=== PATIENT | female | born 1980 | race Caucasian/White ===

== ENCOUNTER 2019-09-01 08:59 | Emergency (ER) | payer SELFPAY ==
[~2019-09-01] VITALS: Wt 133.2 kg
[2019-09-01] MEDS ORDERED: YAZ 28 3 MG-0.01 TAB PO (09:25)
[2019-09-01] MEDS ORDERED: ZOLOFT 100MG100 MG PO (09:26)
[2019-09-01] MEDS ORDERED: CELEBREX 1100 MG/CAP PO (09:26)
[2019-09-01] MEDS ORDERED: LISINOPRIL10 MG PO (09:26)
[2019-09-01] MEDS ORDERED: GLUCOPHAGE PO (09:27)
[2019-09-01] MEDS ORDERED: CYCLOBENZ5 MG PO (09:27)
[2019-09-01] MEDS ORDERED: DAILY VALUE1 EACH PO (09:28)
[2019-09-01] MEDS ORDERED: ZOFRAN4 M2 PO (09:28)
[2019-09-01 09:48] LABS: EOS # 0.2 (0.04-0.40); EOS % 2.2 % (1.0-5.0); HEMATOCRIT 37.6 % (37.0-47.0); HEMOGLOBIN 11.8 g/dL (12.5-16.0); LYMPH# 2.5 (1.50-4.00); MEAN CELL VOLUME 87 fl (78-100); MEAN CORPUSCULAR HEMOGLOBIN 27 pg (27-31); MEAN CORPUSCULAR HGB CONC 31 g/dL (33-37); MONO # 0.4 (0.20-0.80); NEU # 7.4 (1.40-6.50); PLATELET COUNT 339 K/mm3 (130-400); RED BLOOD COUNT 4.33 M/mm3 (4.10-5.30); RED CELL DISTRIBUTION WIDTH 15.1 % (11.5-14.5); WHITE BLOOD COUNT 10.6 K/mm3 (4.8-10.8)
[2019-09-01 09:58] LABS: ALBUMIN 3.3 g/dL (3.5-5.0)
[2019-09-01 09:59] LABS: CALCIUM 8.5 mg/dL (8.3-10.5)
[2019-09-01 10:00] LABS: TOTAL PROTEIN 6.7 g/dL (6.4-8.3)
[2019-09-01 10:02] LABS: TOTAL BILIRUBIN 0.2 mg/dL (0.2-1.2)
[2019-09-01 10:59] LABS: URINE APPEARANCE CLEAR; URINE BILIRUBIN NEGATIVE (NEGATIVE); URINE BLOOD NEGATIVE (NEGATIVE); URINE COLOR YELLOW; URINE GLUCOSE NEGATIVE (NEGATIVE); URINE KETONE NEGATIVE (NEGATIVE); URINE LEUKOCYTE ESTERASE NEGATIVE (NEGATIVE); URINE NITRATE NEGATIVE (NEGATIVE); URINE PROTEIN(semi-quant) NEGATIVE (NEGATIVE); URINE UROBILINOGEN NORMAL (NORMAL); URINE WBC 0-1 /hpf (0-3)
[2019-09-01 15:58] VITALS: BP 112/52
== END 2019-09-01 16:04 | disposition home or self-care (01) ==
LOC: ED 08:59
PROVIDERS: Nurse Practitioner Primary Care
DX: R10.84 Generalized abdominal pain (principal); I10 Essential (primary) hypertension; F32.9 Major depressive disorder, single episode, unspecified; E28.2 Polycystic ovarian syndrome
CPT/HCPCS: J1885; J2270; J2310; J2405; Q9967

== ENCOUNTER 2020-04-19 12:15 | Emergency (ER) | payer BC ==
[~2020-04-19 12:15] MED LIST: CELEBREX 1100 MG/CAP PO; CYCLOBENZ5 MG PO; DAILY VALUE1 EACH PO; GLUCOPHAGE PO; LISINOPRIL10 MG PO; YAZ 28 3 MG-0.01 TAB PO; ZOFRAN4 M2 PO; ZOLOFT 100MG100 MG PO
[2020-04-19] MEDS ORDERED: FLONASE ALLERG9.9 ML NS (12:28)
[2020-04-19] MEDS ORDERED: ZYRTEC10 M3 PO (12:28)
[2020-04-19 13:13] LABS: EOS # 0.2 (0.04-0.40); EOS % 2.8 % (1.0-5.0); HEMATOCRIT 36.6 % (37.0-47.0); HEMOGLOBIN 11.6 g/dL (12.5-16.0); MEAN CELL VOLUME 84 fl (78-100); MEAN CORPUSCULAR HEMOGLOBIN 27 pg (27-31); MEAN CORPUSCULAR HGB CONC 32 g/dL (33-37); MEAN PLATELET VOLUME 8.9 fl (7.4-10.4); MONO # 0.6 (0.20-0.80); NEU # 4.7 (1.40-6.50); PLATELET COUNT 384 K/mm3 (130-400); RED BLOOD COUNT 4.37 M/mm3 (4.10-5.30); RED CELL DISTRIBUTION WIDTH 15.3 % (11.5-14.5); WHITE BLOOD COUNT 7.5 K/mm3 (4.8-10.8)
[2020-04-19 13:23] LABS: ALBUMIN 3.6 g/dL (3.5-5.0)
[2020-04-19 13:24] LABS: POTASSIUM 3.5 mmol/L (3.5-5.1); SODIUM 139 mmol/L (136-145)
[2020-04-19 13:25] LABS: CALCIUM 8.8 mg/dL (8.3-10.5)
[2020-04-19 13:26] LABS: GLUCOSE 98 mg/dL (65-105); TOTAL PROTEIN 6.9 g/dL (6.4-8.3)
[2020-04-19 13:27] LABS: CARBON DIOXIDE 24 mmol/L (22-29)
[2020-04-19 13:28] LABS: D-DIMER 0.89 mg/L FEU (0.15-0.50); TOTAL BILIRUBIN 0.2 mg/dL (0.2-1.2)
[2020-04-19 13:31] LABS: AST-SGOT 19 U/L (5-34)
[2020-04-19 13:32] LABS: ALT/SGPT 21 U/L (0-55)
[2020-04-19 13:40] LABS: TROPONIN-I < 0.03 ng/mL (<0.030)
[2020-04-19 13:41] LABS: URINE APPEARANCE CLEAR; URINE BILIRUBIN NEGATIVE (NEGATIVE); URINE BLOOD 50 ery/uL (NEGATIVE); URINE COLOR YELLOW; URINE GLUCOSE NEGATIVE (NEGATIVE); URINE KETONE NEGATIVE (NEGATIVE); URINE LEUKOCYTE ESTERASE NEGATIVE (NEGATIVE); URINE MUCUS PRESENT (NOT PRESENT); URINE NITRATE NEGATIVE (NEGATIVE); URINE PROTEIN(semi-quant) NEGATIVE (NEGATIVE); URINE UROBILINOGEN NORMAL (NORMAL)
[2020-04-19] MEDS ORDERED: MORGIDOX 1X100100 MG PO (16:42)
[2020-04-19] MEDS ORDERED: PHENERGAN 25 TA25 MG PO (16:42)
[2020-04-19 17:15] VITALS: BP 107/61
== END 2020-04-19 17:15 | disposition home or self-care (01) ==
LOC: ED 12:15
PROVIDERS: Nurse Practitioner
DX: R55 Syncope and collapse (principal); J18.9 Pneumonia, unspecified organism; R11.0 Nausea; Z88.6 Allergy status to analgesic agent; Z20.822 Contact with and (suspected) exposure to COVID-19
CPT/HCPCS: J2405; J2550; J7030; Q9967

== ENCOUNTER 2023-05-05 14:41 | Emergency (ER) | payer OTHER, BC ==
[~2023-05-05] VITALS: Ht 152.4 cm; Wt 123.4 kg
[~2023-05-05 14:41] MED LIST changes: +FLONASE ALLERG9.9 ML NS; +MORGIDOX 1X100100 MG PO; +PHENERGAN 25 TA25 MG PO; +ZYRTEC10 M3 PO
[2023-05-05] MEDS ORDERED: Ketorolac 30 MG/ML VIAL IM ONE (16:00)
[2023-05-05 17:55] VITALS: BP 145/95
== END 2023-05-05 17:59 | disposition home or self-care (01) ==
LOC: ED 14:41
DX: M25.562 Pain in left knee (principal); M25.552 Pain in left hip; M25.531 Pain in right wrist; W01.0XXA Fall on same level from slipping, tripping and stumbling without subsequent striking against object, initial encounter; Y92.59 Other trade areas as the place of occurrence of the external cause; Y99.0 Civilian activity done for income or pay
CPT/HCPCS: J1885